=== PATIENT | female | born 1965 | race Caucasian/White ===

== ENCOUNTER 2017-06-30 12:29 | Inpatient (IN) ==
--- NOTE | 2017-06-30 12:54 | History & Physical Report ---
Date of Encounter: 06/30/17 Time of Encounter: 12:54 24 Hour HP Update - Instructions Instructions: If the History and Physical is less than 30 days old and was completed prior to A.M. admission and or procedure and has NOT been updated on calendar day of procedure please complete this update prior to performing procedure. - Update Patient reports changes in Medical Condition: No Changes in examination, assessment, or condition: No Changes in Medication: No Preop tests/diagnostics Reviewed: Yes Surgery Remains Indicated: Yes Consent for Planned Operative Procedure(s) Verified: Yes - Pre-Operative Checklist Preoperative Checklist Indicated: No Prophylactic Antibiotic Ordered: Yes Is VTE Prophylaxis Indicated?: Yes
[2017-06-30] MEDS ORDERED: Famotidine 20 MG/2 ML VIAL IVP ONE (12:58)
[2017-06-30] MEDS ORDERED: Acetaminophen IV 1,000 MG/100 ML INFUS..BTL IVPB ONE (12:59)
--- NOTE | 2017-06-30 13:02 | Anesthesia Evaluation PreOp ---
Date of Encounter: 06/30/17 Time of Encounter: 13:00 - Past History Planned Operation: Revision R-Total Shoulder Cardiac History: HTN (previously medicated. Off>5 yrs s/p Lap Band), Hyperlipidemia (previously medicated. 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 Last seizure > 10yrs ago), Other (Bipolar disorder, Anxiety/Depression/+ Hx Self Harm, Panic disorder, Essential Tremor. Fibromyalgia) Other Medical History: GERD (Sliding Hiatal Hernia, Anxiety/) Anesthesia History: Past Anesthesia (Foot/Ankle surgery, B -shoulder scope, Saira, Tubal ligation, Hsyter, T&A, Lap Band, R-Total shoulder 06/2014, R-ankle fusion 10/2014,), Problems (PONV) Alcohol Use: none Drug use: none Medications and Allergies LORazepam [Lorazepam] 2 mg PO TID PRN 05/07/16 [History] Sertraline [Zoloft] 50 mg PO DAILY 07/27/16 [History] Amitriptyline [Elavil] 25 mg PO HS 06/30/17 [History] Cetirizine HCl [All Day Allergy] 10 mg PO BID PRN 06/30/17 [History] lamoTRIgine [Lamotrigine] 200 mg PO BID 06/30/17 [History] 3 Allergy/AdvReac Type Severity Reaction Status Date / Time gabapentin Allergy See Verified 06/23/17 10:21 Comments hydrocodone Allergy Itching Verified 06/23/17 10:21 Hydromorphone Allergy Hallucinati Verified 06/23/17 10:21 ng primidone Allergy See Verified 06/23/17 10:21 Comments tramadol Allergy Rash Verified 06/23/17 10:21 NSAIDS (Non-Steroidal AdvReac See Verified 06/23/17 10:21 Anti-Inflamma Comments - Meds/Allergy Pre-op Review Medications Reviewed: Yes Allergies Reviewed: Yes Beta Blockers on Current Med List: No Anesthesia Results - Labs Laboratory Tests 06/23/17 06/23/17 06/23/17 10:37 10:37 10:37 WBC 5.3 Hgb 13.6 Hct 41.0 Plt Count 175 PT 11.1 INR 1.0 APTT 28.9 Sodium 142 Potassium 4.3 Chloride 106 Carbon Dioxide 29 BUN 9 Creatinine 0.83 Est GFR (Non-Af Amer) > 60 Anesthesia Exam O2 Sat Height 1.6 m Height 1.6 m Weight 102.512 kg Weight 102.512 kg O2 Sat by Pulse Oximetry 94 Vital Signs Temp Pulse Resp BP Pulse Ox 99.2 F 99 18 108/69 94 06/30/17 12:58 06/30/17 12:58 06/30/17 12:58 06/30/17 12:58 06/30/17 12:58 Height: 5'3" Weight: 226# BMI = 40 NPO (# of Hours): MNOc - HEENT Pupil (Motor): Pupils equal, EOMI Mallampati: III Teeth: Normal Oral Opening: Greater than 3 - LABEL DRIER LOC: Oriented LABEL DRIER Motor: Normal RUE, Normal LUE, Normal RLE, Normal LLE, Normal Face LABEL DRIER Sensory: Normal: RUE, LUE, RLE, LLE, Face - Cardiac Rhythm: Regular Murmur: None - Pulmonary Breath Sounds: bilateral Clear Respiratory Effort: Symmetrical Anesthesia Assess/Plan ASA Score: 3 (MO/BmI = 40, DM, Bipolar/panic disorder/Anxiety/Depression, Seizure disorder, Essential Tremor, Fibromyalgia, ALLYSON) Modified Theodora Scale for Level of Consciousness: Cooperative, oriented, and tranquil Anesthetic Plan: General Monitoring Plan: Standard Monitors Recovery Plan: PACU Anes Supervising Prov Stmt: Pt seen/evaluated, R&B Discussed, questions answered and consent obtained. Addie Pandya
[2017-06-30] MEDS ORDERED: Scopolamine Patch 1.5 MG PATCH.TD72 TD STA (13:10)
[2017-06-30] MEDS ORDERED: Clindamycin 900 MG/50 ML 900 MG/50 ML IV.SOLN IVPB ONE (13:20)
[2017-06-30] MEDS ORDERED: Metoclopramide 10 MG/2 ML VIAL IVP ONE (13:23)
[2017-06-30] MEDS ORDERED: Metoclopramide 10 MG/2 ML VIAL IVP PRN (13:28)
[2017-06-30] MEDS ORDERED: Ringers Solution, Lactated 1,000 ML IVC SCH ×2 (13:30→16:32)
--- NOTE | 2017-06-30 13:41 | Discharge Summary ---
Orders not resulted at time of discharge: Pending orders 06/30/17 08:03 XR shoulder complete RT [XR] Routine Hemoglobin and Hematocrit [HEME] Routine Date of Encounter: 07/04/17 Time of Encounter: 06:49 - Discharge Diagnosis (1) Hypertension Priority: Secondary Status: Chronic Qualifiers: Hypertension type: unspecified Qualified Code(s): I10 - Essential (primary ) hypertension (2) Hyperlipidemia Priority: Secondary Status: Chronic Qualifiers: Hyperlipidemia type: unspecified Qualified Code(s): E78.5 - Hyperlipidemia , unspecified (3) Hyperlipidemia Priority: Secondary Status: Chronic Qualifiers: Hyperlipidemia type: unspecified Qualified Code(s): E78.5 - Hyperlipidemia , unspecified (4) Obstructive sleep apnea Priority: Secondary Status: Chronic (5) Epilepsy Priority: Secondary Status: Chronic Qualifiers: Epilepsy type: unspecified Intractability: not intractable Status epilepticus: without status epilepticus Qualified Code(s): G40.909 - Epilepsy , unspecified, not intractable, without status epilepticus (6) Morbid obesity with BMI of 40.0-44.9, adult Priority: Secondary Status: Chronic (7) Loosening of total shoulder replacement Priority: Primary Status: Chronic Qualifiers: Encounter type: subsequent encounter Qualified Code(s): T84.038D - Mechanical loosening of other internal prosthetic joint, subsequent encounter; Z96.619 - Presence of unspecified artificial shoulder joint (8) Bipolar disease, chronic Priority: Secondary Status: Chronic - Hospital Course Hospital course: Ms. Kurtz is a 51 year old female Status post revision total shoulder replacement The patient had an uneventful postoperative course. They received antibiotics and physical therapy and were discharged in stable condition. There will follow -up in the office in 2 weeks. - Time Spent with Patient Total time spent providing and/or coordinating discharge services: - Discharge Medications Home Medications: LORazepam [Lorazepam] 2 mg PO TID PRN 05/07/16 [History] Sertraline [Zoloft] 50 mg PO DAILY 07/27/16 [History] Amitriptyline [Elavil] 25 mg PO HS 06/30/17 [History] Cetirizine HCl [All Day Allergy] 10 mg PO BID PRN 06/30/17 [History] OxyCODONE Immed Rel [Roxicodone 5 MG] 5 mg PO Q4HR PRN 5 Days #20 tablet [Rx] lamoTRIgine [Lamotrigine] 200 mg PO BID 06/30/17 [History] Allergies/Adverse Reactions: 3 Allergy/AdvReac Type Severity Reaction Status Date / Time gabapentin Allergy FACIAL Verified 06/30/17 13:43 SWELLING hydrocodone Allergy Itching Verified 06/30/17 13:43 Hydromorphone Allergy Hallucinati Verified 06/30/17 13:43 ng primidone Allergy See Verified 06/30/17 13:43 Comments tramadol Allergy Rash Verified 06/30/17 13:43 NSAIDS (Non-Steroidal AdvReac See Verified 06/30/17 13:43 Anti-Inflamma Comments Primary care physician: Graciela Martinez CNP - Patient Status Disposition: Home, Self-Care Condition: Good Functional capacity at discharge: independent ambulation Overall status at discharge: patient is progressing back to baseline - Discharge Instructions Follow Up With: Graciela Martinez CNP [Primary Care Provider] -
[2017-06-30] MEDS ORDERED: Bupivacaine/Clonidine Syringe 1 EACH SYRINGE ONE (13:42)
[2017-06-30] MEDS ORDERED: ROPIVACAINE HCL/PF 0.5% 30 ML VIAL ONE (13:42)
[2017-06-30] MEDS ORDERED: *HR* FentaNYL (PF) 100 MCG/2 ML VIAL ONE ×2 (13:57→15:39)
[2017-06-30] MEDS ORDERED: *HR* Midazolam HCl 2 MG/2 ML VIAL ONE ×2 (13:57→14:13)
[2017-06-30] MEDS ORDERED: Ondansetron 4 MG/2 ML VIAL ONE (13:58)
[2017-06-30] MEDS ORDERED: Dexamethasone 4 MG/ML VIAL ONE (13:58)
[2017-06-30] MEDS ORDERED: *HR* Succinylcholine 200 MG/10 ML VIAL IVP ONE (13:58)
[2017-06-30] MEDS ORDERED: Lidocaine -MPF 2% 2 ML VIAL ONE (13:58)
[2017-06-30] MEDS ORDERED: *HR* Propofol 200 MG/20 ML VIAL IVP ONE (13:59)
[2017-06-30] MEDS ORDERED: Lidocaine -MPF 4% 5 ML AMPUL ONE (13:59)
[2017-06-30] MEDS ORDERED: Ethanol\\Acetic Acid\\Na Ace\\Ben 1,000 ML IRRIG.SOLN IR ONE (14:11)
[2017-06-30] MEDS ORDERED: Tetracaine/PF 20 MG/2 ML AMPUL ONE (14:15)
[2017-06-30] MEDS ORDERED: *HR* FentaNYL PATCH 25 MCG PATCH TD ONE (14:30)
[2017-06-30] MEDS ORDERED: *HR* FentaNYL (PF) 100 MCG/2 ML VIAL IVP PRN (15:01)
[2017-06-30] MEDS ORDERED: *HR* Labetalol 20 MG/4 ML SYRINGE IVP PRN (15:01)
[2017-06-30] MEDS ORDERED: EPHEDrine 50 MG/ML VIAL ONE (15:21)
[2017-06-30] MEDS ORDERED: *HR* PHENYLEPHRINE 1,000 MCG/10 ML SYRINGE IVP ONE (15:25)
--- NOTE | 2017-06-30 15:55 | Orthopedic Operative Note ---
Date of procedure: 06/30/17 Pre-op diagnosis: Rotator cuff tear right total shoulder Post-op diagnosis: same Procedure: Procedure: Right Revision Total Shoulder replacement reverse Estimated blood loss: 100 cc Hardware: Arthrex Revers Base plate: small Glenosphere: 36mm central 2 4.5 screws 1 6.5 screw Humeral stem:6 Poly insert:3 Procedural Notes: Irreparable tear subscapularis Operative procedure: The patient was brought to the operating room and placed on the operating room table. The patient was placed in the modified beachchair position. All pressure points were padded appropriately. And the head was stabilized in the neutral position. The operative extremity was prepped and draped in the sterile surgical fashion. The patient received IV antibiotics prior to skin incision. A standard deltopectoral approach was made to the operative shoulder. Incision was made to the skin and subcutaneous tissue,hemo stasis was obtained with Bovie cautery. Using careful blunt dissection the cephalic vein was identified and mobilized medially. The deltopectoral interval was developed and the clavipectoral fascia was incised. Patient had a irreparable tear of the subscapularis. An extensive debridement was performed, and the shoulder was dislocated. Using an osteotome to clear out the soft tissue, the humeral component was gently removed. Anterior and posterior Bankart retractors were used to expose the glenoid, the glenoid component was removed without incident. The glenoid guide was seated the centering hole was made the glenoid was reamed with the appropriate small reamer. The small glenoid baseplate was seated and secured and locked in place with the 2 4.5 screws, one 6.5 screw. The baseplate was irrigated and dried 36 central glenosphere was seated and secured. Attention was then turned to the humeral side. The humerus was reamed and broached up to its appropriate size 6 in 20 degrees of retroversion. Trial reduction found the shoulder to be relocatable. Trial components were removed, real implants were seated. Trial reduction found the shoulder to be stable with the appropriate 3 Leyla. The trial implants were removed the real implants were seated and secured in the shoulder was reduced. The patient had excellent motion and excellent stability no shuck. The deep tissue was irrigated with pulse irrigation deltopectoral interval was closed with #2 PDS suture. Superficially the subcutaneous tissue was closed with 0 PDS suture, the skin was closed with skin kala. The patient placed sterile dressing, postoperative brace extubated and transferred to the recovery room in stable condition. Anesthesia: GETA Surgeon: Adam Cancino Was there an pharmaceutical assistant present: No Estimated blood loss (cc): 100 Condition: stable Disposition: PACU
[2017-06-30] MEDS ORDERED: Temazepam 15 MG CAPSULE PO PRN (16:32)
[2017-06-30] MEDS ORDERED: *HR* LORazepam 1 MG TABLET PO PRN (16:32)
[2017-06-30] MEDS ORDERED: Ondansetron 4 MG/2 ML VIAL IVP PRN (16:32)
[2017-06-30] MEDS ORDERED: MOM Conc 10 ML UD.LIQ PO PRN (16:32)
[2017-06-30] MEDS ORDERED: Naloxone 0.4 MG/ML INJ IVP PRN (16:32)
[2017-06-30] MEDS ORDERED: Sennosides 8.6 MG TABLET PO PRN (16:32)
--- NOTE | 2017-06-30 16:47 | Anesthesia Evaluation Post Op ---
Date of Encounter: 06/30/17 Time of Encounter: 16:50 - Vital Signs Vital Signs: Vital Signs/O2 Sat/Glucose, Most Current Temp Pulse Resp BP Pulse Ox 06/30/17 16:40 97.6 F 87 14 104/68 98 06/30/17 16:25 98.3 F 85 20 117/75 93 06/30/17 16:15 85 20 109/69 95 06/30/17 16:05 93 20 120/68 93 06/30/17 15:55 97.0 F L 92 20 116/61 100 06/30/17 14:19 88 16 111/69 97 06/30/17 14:11 94 16 119/63 97 06/30/17 13:55 92 16 128/81 96 06/30/17 12:58 99.2 F 99 18 108/69 94 - Lungs Lungs: Clear Ascult./Percussion - Airway Airway: Non-obstructed - Cardiovascular Regular Rate - Mental Status Mental Status: Alert & Oriented, Answers Appropriately - Pain Pain Scale: 0 - Nausea Vomiting Nausea Vomiting: Not Present - Hydration Hydration: Tolerates oral liquids - Discharge PostOp Status: Transfer Patient to floor
[2017-06-30 17:04] LABS: Hematocrit 35.3 % (35.3-44.9); Hemoglobin 11.7 g/dL (11.5-15.4)
[2017-06-30] MEDS ORDERED: *HR* Enoxaparin 30 MG/0.3 ML SYRINGE SQ SCH (18:00)
[2017-06-30] MEDS: *HR* Enoxaparin 30 MG/0.3 ML SYRINGE SQ SCH (18:46)
[2017-06-30] MEDS: Loratadine 10 MG TABLET PO SCH (18:48)
[2017-06-30] MEDS: lamoTRIgine 100 MG TABLET PO SCH (21:18)
[2017-06-30] MEDS: *HR* OxyCODONE/APAP 5/325 TABLET PO PRN (22:39)
[2017-07-01] MEDS: CeFAZolin Pre 2,000 MG/100 ML 2,000 MG/100 ML BAG IVPB SCH ×2 (00:57→09:42)
[2017-07-01 02:58] LABS: Hematocrit 34.1 % (35.3-44.9); Hemoglobin 11.5 g/dL (11.5-15.4)
[2017-07-01] MEDS: *HR* OxyCODONE/APAP 5/325 TABLET PO PRN (04:59)
[2017-07-01] MEDS: *HR* Enoxaparin 30 MG/0.3 ML SYRINGE SQ SCH ×3 (05:00→16:35)
[2017-07-01] MEDS: Loratadine 10 MG TABLET PO SCH (09:42)
[2017-07-01] MEDS: lamoTRIgine 100 MG TABLET PO SCH ×2 (09:44→20:14)
[2017-07-01] MEDS: *HR* OxyCODONE Immed Rel 5 MG TABLET PO PRN ×2 (11:20→19:42)
[2017-07-01] MEDS ORDERED: *HR* OxyCODONE/APAP 10/325 TABLET PO PRN (13:29)
[2017-07-01] MEDS: Acetaminophen IV 1,000 MG/100 ML INFUS..BTL IVPB PRN (14:36)
--- NOTE | 2017-07-01 15:18 | Orthopedics Progress Note ---
Date of Encounter: 07/01/17 Time of Encounter: 15:16 Subjective Principal diagnosis: Status post right total shoulder arthroplasty Interval history: Patient reporting severe pain. She received 10 mg oxycodone, not getting Toradol.. Right shoulder dressings intact Discharge planning pending pain control Objective Vital signs: Vital Signs Temp Pulse Resp BP Pulse Ox 07/01/17 12:04 98 F 83 17 109/68 96 07/01/17 09:58 95 07/01/17 08:36 97.9 F 75 17 102/65 95 07/01/17 04:27 98.5 F 73 14 119/69 95 06/30/17 23:37 98.3 F 105 15 120/63 95 06/30/17 19:57 99.1 F 111 14 112/68 97 06/30/17 18:43 98.3 F 104 14 108/72 98 06/30/17 17:40 96.7 F L 93 16 117/63 96 06/30/17 17:09 98.1 F 89 14 116/74 98 06/30/17 17:05 98 06/30/17 16:40 97.6 F 87 14 104/68 98 06/30/17 16:25 98.3 F 85 20 117/75 93 06/30/17 16:15 85 20 109/69 95 06/30/17 16:05 93 20 120/68 93 06/30/17 15:55 97.0 F L 92 20 116/61 100 Intake and Output 06/30/17 07/01/17 07/01/17 23:59 07:59 15:59 Intake Total 100 / 100 Output Total 100 / 100 350 / 350 Balance -100 / -100 100 / 100 -350 / -350 Intake: IV Fluids 100 / 100 Ancef Premix 2,000 MG/100 ML 2, 100 / 100 000 mg In 100 ml @ 200 mls/hr IVPB Q8HR [facility] Rx#:[id number] Output: Urine 350 / 350 Estimated Blood Loss 100 / 100 Other: # Voids 2 1 - Labs CBC & BMP: 07/01/17 02:27 Labs: Abnormal lab results Hct 34.1 % (35.3-44.9) L 07/01/17 02:27 - VTE Documentation of Mechanical Device: Venous foot pump, device Consult Discharge Plan - Plan Referrals: Graciela Martinez, IT TECHNICAL SUPPORT SPECIALIST [Primary Care Provider] -
[2017-07-01] MEDS: Ketorolac 30 MG/ML VIAL IVP PRN ×2 (15:55→21:59)
[2017-07-01] MEDS ORDERED: *HR* FentaNYL (PF) 100 MCG/2 ML VIAL IVP ONE (16:06)
[2017-07-02] MEDS: *HR* OxyCODONE Immed Rel 5 MG TABLET PO PRN ×3 (01:04→10:13)
[2017-07-02 02:25] LABS: Hematocrit 31.9 % (35.3-44.9); Hemoglobin 10.7 g/dL (11.5-15.4)
[2017-07-02] MEDS: Ketorolac 30 MG/ML VIAL IVP PRN (04:07)
[2017-07-02] MEDS: *HR* Enoxaparin 30 MG/0.3 ML SYRINGE SQ SCH (06:00)
[2017-07-02] MEDS: Loratadine 10 MG TABLET PO SCH (08:51)
[2017-07-02] MEDS: lamoTRIgine 100 MG TABLET PO SCH (08:51)
[2017-07-02 11:52] VITALS: BP 118/77
[2017-07-02] MEDS: Acetaminophen IV 1,000 MG/100 ML INFUS..BTL IVPB PRN (12:33)
== END 2017-07-02 13:09 | disposition home or self-care (01) | DRG 483 ==
LOC: SAMDAY 12:29 → 3NENU 16:27
PROVIDERS: ADMIT Orthopaedic Surgery; ATTEND Orthopaedic Surgery

== ENCOUNTER 2017-08-11 02:19 | Observation (INO) ==
[2017-08-11] MEDS ORDERED: Aspirin 81 MG TAB.CHEW PO ONE (02:41)
[2017-08-11] MEDS ORDERED: Nitroglycerin 0.4 MG TAB.SUBL SL ONE (03:22)
[2017-08-11] MEDS: Nitroglycerin 0.4 MG TAB.SUBL SL PRN ×2 (03:26→05:46)
--- NOTE | 2017-08-11 03:26 | Emergency Department Note ---
Disposition Clinical Impression: Chest pain Qualifiers: Chest pain type: chest pain on breathing Qualified Code(s): R07.1 - Chest pain on breathing Disposition: Admitted As Inpatient Time of Disposition: 08:08 General Adult HPI - General Chief complaint: ED Chest Pain Stated complaint: Chest pain Time Seen by Provider: 08/11/17 02:40 Source: patient, EMS Limitations: no limitations Nursing Notes Reviewed: Yes Vital Signs Reviewed: Yes - History of Present Illness HPI Narrative: Pt complaining of left-sided chest pain that radiates to her scapula. Gets worse when she takes a deep breath. Radiates to her back. Did get some relief with nitroglycerin by EMS. No history of stent placement however did have a cardiac catheter several years ago. Extensive history her family of cardiac issues. Pain Scale: 5 - Related Data Home Medications Medication Instructions Recorded Confirmed LORazepam [Lorazepam] 2 mg PO TID PRN 05/07/16 08/11/17 Sertraline [Zoloft] 50 mg PO DAILY 07/27/16 08/11/17 Amitriptyline [Elavil] 25 mg PO HS 06/30/17 08/11/17 lamoTRIgine [Lamotrigine] 200 mg PO BID 06/30/17 08/11/17 Allergies Allergy/AdvReac Type Severity Reaction Status Date / Time gabapentin Allergy FACIAL Verified 08/11/17 07:29 SWELLING hydrocodone Allergy Itching Verified 08/11/17 07:29 Hydromorphone Allergy Hallucinati Verified 08/11/17 07:29 ng primidone Allergy See Verified 08/11/17 07:29 Comments tramadol Allergy Rash Verified 08/11/17 07:29 NSAIDS (Non-Steroidal AdvReac See Verified 08/11/17 07:29 Anti-Inflamma Comments All systems ED: reviewed and negative except as stated. Constitutional: Denies: fever, chills ENT ED: Denies: congestion Cardiovascular: Reports: chest pain. 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 Denies: abdominal pain, vomiting, diarrhea Genitourinary: Denies: urgency, dysuria, frequency Musculoskeletal: Denies: back pain, neck pain Past Medical History - Past Medical History Attestation: Yes The following information was validated with the patient. 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 Absent: scleral icterus - ENT ENT exam: normal exam, normal oropharynx, mucous membranes moist - Neck Neck exam: Present: normal inspection, full ROM, trachea midline - Chest Chest inspection: Present: normal inspection, symmetric chest wall rise - Respiratory Respiratory exam: Present: normal lung sounds bilaterally. Absent: respiratory distress, accessory muscle use - Cardiovascular Cardiovascular exam: Present: regular rate, normal rhythm, normal heart sounds - Abdominal Exam Abdominal exam: Present: soft, Non-Tender. Absent: distention, organomegaly, Young's sign, Rovsing's sign, tenderness at McBurney's Point - Extremities Exam Extremities exam: Present: normal inspection, full ROM, normal capillary refill. Absent: tenderness, pedal edema - Back Exam Back exam: Present: normal inspection, full ROM. Absent: tenderness - Neurological Exam Neurological exam: Present: alert, oriented X3 - Psychiatric Psychiatric exam: Present: normal affect, normal mood - Skin Skin exam: Present: warm, dry, intact, normal color Course Course Narrative: Female patient presenting to the emergency department complaining of chest pain. States that it started 2 hours prior to arrival here. She was up watching television whenever she started having chest pain. Is in the left side of her chest radiates under her breasts into her back specifically to her scapula. No associated shortness of breath that when she takes a deep breath it does hurt worse. No fevers or chills. No recent illnesses. She states she did have a cardiac catheter is been several years ago. No stent placement. She is not a smoker. She states she is otherwise healthy. Does have an extensive cardiac history in her family. Patient came in by EMS. She states that she does feel better after the nitroglycerin however the pain is returning at this time. We will provide her with another nitroglycerin this time. No signs of acute ischemia on her EKG. We will get a basic lab workup and a chest x-ray. - Reevaluation(s) Reevaluation #1: Patient's troponin is negative. Chest x-ray is normal. EKG shows no signs of acute ischemia. Patient has rebound chest pain after the nitroglycerin wears off. We will place Nitropaste on patient's chest wall. Patient states she did fall several days ago and injured her right shoulder however she states she did not have chest pain at that time. She was denies any trauma to her chest recently. We will admit patient to the hospital for ACS rule out. She does report pleuritic chest pain that is associated with a deep breath however the chest pain that radiates to her back is resolved or at least significantly decreased with nitroglycerin is concerning for ACS. - Consultations Consultation #1: Dr Garcia accepted pt in stable condition. Time: 06:07 Vital Signs Temperature 98.3 F 08/11/17 02:20 Pulse Rate 102 08/11/17 02:20 Respiratory Rate 22 08/11/17 02:20 Blood Pressure 139/78 08/11/17 02:20 O2 Sat by Pulse Oximetry 99 08/11/17 02:20 Temperature 98.3 F 08/11/17 02:20 Pulse Rate 93 08/11/17 07:11 Respiratory Rate 18 08/11/17 07:11 Blood Pressure 132/84 08/11/17 07:11 O2 Sat by Pulse Oximetry 96 08/11/17 07:11 Oxygen Delivery Oxygen Delivery Room Air Medical Decision Making - Medical Records Medical records reviewed: Yes I reviewed the patient's medical records. - Lab Data Lab results reviewed: Yes I reviewed the patient's lab results. Result diagrams: 08/11/17 04:10 08/11/17 04:10 Lab Results 08/11/17 08/11/17 08/11/17 Range/Units 04:10 04:10 04:10 WBC 8.7 (4.3-11.1) K/mcL RBC 4.12 (3.82-4.97) M/mcL Hgb 12.5 (11.5-15.4) g/dL Hct 37.3 (35.3-44.9) % MCV 90.5 (83.0-100.0) fL MCH 30.3 (28.0-33.3) pg MCHC 33.5 (31.6-35.5) g/dL RDW 13.7 (11.5-14.5) % Plt Count 162 (140-400) K/mcL MPV 9.3 L (9.4-12.4) fL Immature Gran % 0.5 (0-4) % Seg Neutrophils % 71.7 % Lymphocytes % 19.2 % Monocytes % 6.7 % Eosinophils % 1.6 % Basophils % 0.3 % Neutrophils # 6.3 (1.6-8.9) K/mcL Lymphocytes # 1.7 (0.6-4.6) K/mcL Monocytes # 0.6 (0.0-1.3) K/mcL Eosinophils # 0.1 (0.0-0.6) K/mcL Basophils # 0.0 (0.0-0.2) K/mcL PT 12.1 (9.4-12.1) Seconds INR 1.1 Sodium 139 (136-145) mEq/L Potassium 4.0 (3.5-5.1) mEq/L Chloride 105 (98-107) mEq/L Carbon Dioxide 27 (23-29) mEq/L BUN 15 (6-20) mg/dL Creatinine 0.85 (0.60-1.20) mg/dL Est GFR ( Amer) > 60 (> 60) Est GFR (Non-Af Amer) > 60 (> 60) BUN/Creatinine Ratio 18 (6-26) Glucose 106 H (70-105) mg/dL Calculated Osmolality 289 (280-300) Calcium 9.3 (8.6-10.3) mg/dL Troponin I < 0.03 (< 0.04) ng/mL - Radiology Data Radiology results reviewed: Yes I reviewed the patient's radiology results. Chest X-Ray 08/11/17 02:41 IMPRESSION: No acute findings. D/ / Chuy Pedro / Chuy Pedro Interpreting Provider: Chuy Pedro - EKG Data EKG #1 EKG attestation: Yes I reviewed and interpreted this EKG. EKG results narrative: Sinus tachycardia at a rate of 102. DC intervals 142. QRS duration is 94. QT is 33. QTC is 377. No signs of acute ischemia. No previous EKG to compare to. There is a lot of baseline artifact. Heart Score - Score History: Slightly Suspicious EKG: Normal Age: 45-65 Risk Factors: 1-2 risk factors Troponin: Less than normal limit HEART Score Total: 2
[2017-08-11 04:24] LABS: Basophils % 0.3 %; Eosinophils # 0.1 K/mcL (0.0-0.6); Eosinophils % 1.6 %; Hematocrit 37.3 % (35.3-44.9); Hemoglobin 12.5 g/dL (11.5-15.4); Immature Granulocytes % 0.5 % (0-4); Lymphocytes # 1.7 K/mcL (0.6-4.6); Lymphocytes % 19.2 %; Mean Corpuscular HGB Conc 33.5 g/dL (31.6-35.5); Mean Corpuscular Hemoglobin 30.3 pg (28.0-33.3); Mean Corpuscular Volume 90.5 fL (83.0-100.0); Mean Platelet Volume 9.3 fL (9.4-12.4); Monocytes # 0.6 K/mcL (0.0-1.3); Monocytes % 6.7 %; Neutrophils # 6.3 K/mcL (1.6-8.9); Platelet Count 162 K/mcL (140-400); Red Blood Count 4.12 M/mcL (3.82-4.97); Red Cell Distribution Width 13.7 % (11.5-14.5); Segmented Neutrophils % 71.7 %
[2017-08-11 04:30] LABS: INR 1.1; Prothrombin Time 12.1 Seconds (9.4-12.1)
[2017-08-11 04:45] LABS: BUN/Creatinine Ratio 18 (6-26); Blood Urea Nitrogen 15 mg/dL (6-20); Calcium 9.3 mg/dL (8.6-10.3); Carbon Dioxide 27 mEq/L (23-29); Chloride 105 mEq/L (98-107); Glucose 106 mg/dL (70-105); Osmolality,Calculated 289 (280-300); Sodium 139 mEq/L (136-145); Troponin I < 0.03 ng/mL (< 0.04); eGFR For African Americans > 60 (> 60); eGFR For Non-African Americans > 60 (> 60)
[2017-08-11] MEDS ORDERED: Nitroglycerin 1 INCH/GM PACKET TP ONE (05:46)
--- NOTE | 2017-08-11 06:16 | Emergency Department Note ---
Disposition Clinical Impression: Chest pain Qualifiers: Chest pain type: chest pain on breathing Qualified Code(s): R07.1 - Chest pain on breathing Disposition: Admitted As Inpatient General Adult HPI - General Chief complaint: ED Chest Pain Stated complaint: Chest pain Time Seen by Provider: 08/11/17 02:40 Source: patient, EMS Limitations: no limitations Nursing Notes Reviewed: Yes Vital Signs Reviewed: Yes - History of Present Illness Pain Scale: 4 - Related Data Home Medications Medication Instructions Recorded Confirmed LORazepam [Lorazepam] 2 mg PO TID PRN 05/07/16 08/11/17 Sertraline [Zoloft] 50 mg PO DAILY 07/27/16 08/11/17 Amitriptyline [Elavil] 25 mg PO HS 06/30/17 08/11/17 lamoTRIgine [Lamotrigine] 200 mg PO BID 06/30/17 08/11/17 Allergies Allergy/AdvReac Type Severity Reaction Status Date / Time gabapentin Allergy FACIAL Verified 08/11/17 07:29 SWELLING hydrocodone Allergy Itching Verified 08/11/17 07:29 Hydromorphone Allergy Hallucinati Verified 08/11/17 07:29 ng primidone Allergy See Verified 08/11/17 07:29 Comments tramadol Allergy Rash Verified 08/11/17 07:29 NSAIDS (Non-Steroidal AdvReac See Verified 08/11/17 07:29 Anti-Inflamma Comments Constitutional: Denies: fever, chills ENT ED: Denies: congestion Cardiovascular: Reports: chest pain. 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 Denies: abdominal pain, vomiting, diarrhea Genitourinary: Denies: urgency, dysuria, frequency Musculoskeletal: Denies: back pain, neck pain Past Medical History - Past Medical History Medical history: Reports: seizures, other Surgical history: Reports: , cholecystectomy, hysterectomy Psychiatric history: Reports: anxiety, depression, prior suicide attempt VP COMMUNICATIONS history: Reports: bilateral tubal ligation - Social History Smoking Status: Never smoker Smokeless Tobacco Status: No Alcohol use: Reports: none Drug use: Reports: none Physical Exam - General Limitations: no limitations General appearance: alert Course Vital Signs Temperature 98.3 F 08/11/17 02:20 Pulse Rate 102 08/11/17 02:20 Respiratory Rate 22 08/11/17 02:20 Blood Pressure 139/78 08/11/17 02:20 O2 Sat by Pulse Oximetry 99 08/11/17 02:20 Temperature 98.3 F 08/11/17 02:20 Pulse Rate 93 08/11/17 07:11 Respiratory Rate 18 08/11/17 07:11 Blood Pressure 132/84 08/11/17 07:11 O2 Sat by Pulse Oximetry 96 08/11/17 07:11 Oxygen Delivery Oxygen Delivery Room Air Medical Decision Making - Lab Data Result diagrams: 08/11/17 04:10 08/11/17 04:10 Lab Results 08/11/17 08/11/17 08/11/17 Range/Units 04:10 04:10 04:10 WBC 8.7 (4.3-11.1) K/mcL RBC 4.12 (3.82-4.97) M/mcL Hgb 12.5 (11.5-15.4) g/dL Hct 37.3 (35.3-44.9) % MCV 90.5 (83.0-100.0) fL MCH 30.3 (28.0-33.3) pg MCHC 33.5 (31.6-35.5) g/dL RDW 13.7 (11.5-14.5) % Plt Count 162 (140-400) K/mcL MPV 9.3 L (9.4-12.4) fL Immature Gran % 0.5 (0-4) % Seg Neutrophils % 71.7 % Lymphocytes % 19.2 % Monocytes % 6.7 % Eosinophils % 1.6 % Basophils % 0.3 % Neutrophils # 6.3 (1.6-8.9) K/mcL Lymphocytes # 1.7 (0.6-4.6) K/mcL Monocytes # 0.6 (0.0-1.3) K/mcL Eosinophils # 0.1 (0.0-0.6) K/mcL Basophils # 0.0 (0.0-0.2) K/mcL PT 12.1 (9.4-12.1) Seconds INR 1.1 Sodium 139 (136-145) mEq/L Potassium 4.0 (3.5-5.1) mEq/L Chloride 105 (98-107) mEq/L Carbon Dioxide 27 (23-29) mEq/L BUN 15 (6-20) mg/dL Creatinine 0.85 (0.60-1.20) mg/dL Est GFR ( Amer) > 60 (> 60) Est GFR (Non-Af Amer) > 60 (> 60) BUN/Creatinine Ratio 18 (6-26) Glucose 106 H (70-105) mg/dL Calculated Osmolality 289 (280-300) Calcium 9.3 (8.6-10.3) mg/dL Troponin I < 0.03 (< 0.04) ng/mL Attestation Statement - Attestation Attestation: I, Rey Castillo MD, personally evaluated this patient and discussed their management with the resident physician. I reviewed the resident's note and agree with the documented findings, medical decision making, and plan of care. 51-year-old female presents to the emergency department with a complaint of some left sided chest pain that started earlier this morning. Pain is below the left breast and radiates around to the left lateral chest. The pain does seem to be worse with deep breathing. No cough or fever. No nausea or vomiting or diaphoresis. No shortness of breath. No palpitations. No dizziness or syncope. No prior history of heart disease. Heart disease does run in her family. On examination patient is a well-developed obese female in no acute distress. She is alert and oriented 3. There is no cyanosis or diaphoresis. Breath sounds are clear and equal bilaterally. Heart regular rate and rhythm. Abdomen is soft and nontender with normal bowel sounds. No pedal edema. Labs reviewed. Troponin normal. Chest x-ray negative. EKG shows a sinus tachycardia with ventricular rate of 102. No acute ST segment elevation or depression noted. The hospitalist, Dr. Garcia, was consulted and accepted admission of the patient.
[2017-08-11] MEDS ORDERED: Naloxone 0.4 MG/ML INJ IVP PRN (06:33)
--- NOTE | 2017-08-11 06:42 | Internal Med History&Physical ---
Date of Encounter: 08/11/17 Time of Encounter: 06:00 Internal Medicine - H&P: HPI Chief complaint: Chest pain Admitted From: Home Plans for Post Hospital Care: Home History of present illness: Ms. Kurtz is a 51 year old female present to ER for chest pain. Past medical history is significant for epilepsy. Patient started to have chest pain about 3 hours ago when she was watching TV. The pain is sudden onset, located on left chest under the breast. Radiated to left scapula. Pain is sharp and constant, 10 out of 10 initially, at 4-5/10 when I saw her in the emergency room. Patient has a mild shortness of breath. Patient denies nausea, vomiting, diaphoresis, or fever. Patient said taking deep breath makes the pain worse. In the emergency room, patient was treated with aspirin and nitroglycerin, patient said the pain is less after treatment. Patient has recent right shoulder surgery 20 days ago. Patient denies recent travel. Patient denies leg pain or leg swelling. Past Med Surg Social Fam HX - Past Medical History Medical history: seizures, other Additional medical history: Tremours Psychiatric history: anxiety, depression, prior suicide attempt - Past Surgical History Surgical History: , cholecystectomy, hysterectomy Additional surgical history: right foot/ankle x3. B/l shoulder. lap band - Social History Smoking Status: Never smoker Smokeless Tobacco Status: No Alcohol use: none Drug use: none - Family History Mother Living Status: Hx Family Cardiac Disorders: Yes Internal Medicine - H&P: Meds LORazepam [Lorazepam] 2 mg PO TID PRN 05/07/16 [History] Sertraline [Zoloft] 50 mg PO DAILY 07/27/16 [History] Amitriptyline [Elavil] 25 mg PO HS 06/30/17 [History] Cetirizine HCl [All Day Allergy] 10 mg PO BID PRN 06/30/17 [History] OxyCODONE Immed Rel [Roxicodone 5 MG] 5 mg PO Q4HR PRN 5 Days #20 tablet [Rx] lamoTRIgine [Lamotrigine] 200 mg PO BID 06/30/17 [History] 3 Allergy/AdvReac Type Severity Reaction Status Date / Time gabapentin Allergy FACIAL Verified 08/10/17 06:10 SWELLING hydrocodone Allergy Itching Verified 08/10/17 06:10 Hydromorphone Allergy Hallucinati Verified 08/10/17 06:10 ng primidone Allergy See Verified 08/10/17 06:10 Comments tramadol Allergy Rash Verified 08/10/17 06:10 NSAIDS (Non-Steroidal AdvReac See Verified 08/10/17 06:10 Anti-Inflamma Comments All Systems PM: A 10-system review of systems was performed and is negative for pertinent findings except as documented above in the HPI. - Constitutional Vitals: Temp Pulse Resp BP Pulse Ox 98.3 F 95 18 129/94 97 08/11/17 02:20 08/11/17 05:45 08/11/17 05:45 08/11/17 05:45 08/11/17 05:45 General appearance: Present: A&O X 3, no acute distress, answers questions appropriately - Head Head exam: Present: atraumatic, normocephalic - Eye Eye exam: Present: PERRL, conjuntiva pink, sclera anicteric Pupils: Present: PERRL - Neck Neck exam general surgery: Present: supple, trachea midline. Absent: lymphadenopathy - Respiratory Respiratory exam: Present: CTAB. Absent: accessory muscle use, rales, rhonchi, wheezes - Cardiovascular Cardiovascular exam: Present: RRR, +S1, +S2. Absent: diastolic murmur, gallop, rubs, systolic murmur - GI/Abdominal GI/Abdominal exam: Present: normal bowel sounds, soft, no peritoneal signs. Absent: distended, tenderness - Extremities Exam Extremities exam: Present: warm, radial pulses palpable and symmetrical. Absent : calf tenderness, cyanotic, pedal edema - Neurological Exam Neurological exam: Present: CN II-XII intact, oriented X3, no focal deficits. Absent: pronater drift, facial droop, speech deficit - Skin Skin exam: Present: dry, intact Internal Med - H&P Results - Labs CBC & Chem 7: 08/11/17 04:10 08/11/17 04:10 - EKG Data -: EKG Interpreted by Myself EKG shows normal: sinus rhythm Rate: normal - Assessment and plan (1) Chest pain Current Visit: Yes Status: Acute Assessment and plan: Patient has chest pain, which is sudden onset. EKG and chest x-ray unremarkable. Pain is respond to nitroglycerin. Need to rule out ACS. Patient also has recent surgery (minor surgery), and the pain is a pleural like pain, also need to rule out PE. - Place patient on continuous cardiac monitoring - Track 3 sets of troponin - Check d-dimer, if positive will consider CTA if patient still have chest pain. Qualifiers: Chest pain type: chest pain on breathing Qualified Code(s): R07.1 - Chest pain on breathing; R07.81 - Pleurodynia (2) DVT prophylaxis Current Visit: Yes Status: Acute Assessment and plan: Heparin subcutaneously (3) Epilepsy Current Visit: No Status: Chronic Assessment and plan: Continue home medication lamotrigine 200 mg twice a day. Qualifiers: Epilepsy type: unspecified Intractability: not intractable Status epilepticus: without status epilepticus Qualified Code(s): G40.909 - Epilepsy , unspecified, not intractable, without status epilepticus - Time Spent With Patient Total time spent is greater than 50% in coordination of care (as documented) at patient's floor/unit and/or counseling patient:
[2017-08-11] MEDS ORDERED: lamoTRIgine 100 MG TABLET PO SCH (09:00)
[2017-08-11] MEDS: Acetaminophen 325 MG TABLET PO PRN ×2 (09:38→15:12)
[2017-08-11 11:25] VITALS: BP 120/76
--- NOTE | 2017-08-11 14:49 | Discharge Summary ---
Orders not resulted at time of discharge: Pending orders 08/12/17 04:00 Basic Metabolic Panel AM 0400 Complete Blood Count [HEME] AM 0400 Magnesium AM 0400 Date of Encounter: 08/11/17 Time of Encounter: 11:00 - Discharge Diagnosis (1) Chest pain Priority: Primary Status: Acute Assessment and Plan: Patient has chest pain, which is sudden onset. EKG and chest x-ray unremarkable. Troponin negative x3. Chest pain had improved but persistent. Recent shoulder surgery, however did not limit mobility. No other risk factors. Low wells score 1.5. D dimer <500. Low risk for PE. Patient not SOB, no hypoxia , HR has been normal except for the first reading. Will discharge to follow up with PMD. Recommended Tylenol for possible costochondritis. Cannot take NSAIDs due to previous GI surgery. Counseled on coming back to ED if pain worsens and does not improve. States that she feels well to go home now. Qualifiers: Chest pain type: chest pain on breathing Qualified Code(s): R07.1 - Chest pain on breathing; R07.81 - Pleurodynia (2) Epilepsy Priority: Secondary Status: Chronic Assessment and Plan: Continue home medication lamotrigine 200 mg twice a day. Qualifiers: Epilepsy type: unspecified Intractability: not intractable Status epilepticus: without status epilepticus Qualified Code(s): G40.909 - Epilepsy , unspecified, not intractable, without status epilepticus Hospital course: Ms. Kurtz is a 51 year old female with PMH of Epilepsy presented to the ER complained of pleuritic chest pain under the breast worst with deep inspiration. Had recent shoulder surgery but reported no mobility changes and no other risk factors increasing risk for clot. D dimer was negative with no significant EKG findings, troponins are all negative. Currently feels better and well enough to go home. Discharge for follow up with PMD, take tylenol as needed. Instructed to return to ED with pain persistent or gets worse. Discharge discussed with: patient, nurse, social work, case management - Time Spent with Patient Total time spent providing and/or coordinating discharge services: Greater than 30 minutes - Discharge Medications Home Medications: LORazepam [Lorazepam] 2 mg PO TID PRN 05/07/16 [History] Sertraline [Zoloft] 50 mg PO DAILY 07/27/16 [History] Amitriptyline [Elavil] 25 mg PO HS 06/30/17 [History] lamoTRIgine [Lamotrigine] 200 mg PO BID 06/30/17 [History] Allergies/Adverse Reactions: 3 Allergy/AdvReac Type Severity Reaction Status Date / Time gabapentin Allergy FACIAL Verified 08/11/17 07:29 SWELLING hydrocodone Allergy Itching Verified 08/11/17 07:29 Hydromorphone Allergy Hallucinati Verified 08/11/17 07:29 ng primidone Allergy See Verified 08/11/17 07:29 Comments tramadol Allergy Rash Verified 08/11/17 07:29 NSAIDS (Non-Steroidal AdvReac See Verified 08/11/17 07:29 Anti-Inflamma Comments Date of admission: 08/11/17 06:17 Primary care physician: Graciela Martinez CNP - Constitutional Vitals: Temp Pulse Resp BP Pulse Ox 98.7 F 82 18 120/76 98 08/11/17 11:24 08/11/17 11:24 08/11/17 11:24 08/11/17 11:24 08/11/17 11:24 General appearance: Present: A&O X 3, no acute distress, answers questions appropriately Exam: General: Alert and oriented Skin: Normal color, no rash, no lesions. HEENT: EOMI, pupils equal, round and reactive. Cardiovascular: Regular rate, regular rythm. No murmurs appreciated. Lungs:Normal breath sounds, no wheezes or crackles. Abdomen:Soft, non-tender, no rigidity. Extremities:No deformity, no edema or tenderness, no joint swelling or clubbing. Neurological:Normal cognition, no weakness, no numbness. Rest of the physical exam is non contributory - Patient Status Disposition: Home, Self-Care Condition: Good Overall status at discharge: patient is progressing back to baseline - Discharge Instructions Follow Up With: Graciela Martinez CNP [Primary Care Provider] - - Diet and Activity Activity: resume usual activities as tolerated
--- NOTE | 2017-08-11 17:43 | Electrocardiograph Report ---
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
[2017-08-11] MEDS ORDERED: *HR* Heparin 5,000 UNIT/ML VIAL SQ SCH (18:00)
== END 2017-08-11 17:42 | disposition home or self-care (01) ==
LOC: 2ANU 02:19 → EMEROO 02:19 → SUATTDRO 06:17 → 2ANU 07:42
PROVIDERS: ADMIT Internal Medicine; ATTEND Student in an Organized Health Care Education/Training Program

== ENCOUNTER 2019-01-10 10:12 | Observation (INO) ==
[2019-01-10] MEDS ORDERED: Nitroglycerin 0.4 MG TAB.SUBL SL PRN (10:17)
[2019-01-10] MEDS ORDERED: Aspirin 81 MG TAB.CHEW PO ONE (10:17)
[2019-01-10 10:39] LABS: Basophils % 0.5 %; Eosinophils # 0.1 K/mcL (0.0-0.6); Eosinophils % 2.2 %; Hemoglobin 13.8 g/dL (11.5-15.4); Immature Granulocytes % 0.5 % (0-4); Lymphocytes # 1.4 K/mcL (0.6-4.6); Lymphocytes % 22.7 %; Mean Corpuscular HGB Conc 34.5 g/dL (31.6-35.5); Mean Corpuscular Hemoglobin 30.7 pg (28.0-33.3); Mean Corpuscular Volume 89.1 fL (83.0-100.0); Mean Platelet Volume 9.5 fL (9.4-12.4); Monocytes # 0.4 K/mcL (0.0-1.3); Monocytes % 5.8 %; Neutrophils # 4.3 K/mcL (1.6-8.9); Platelet Count 165 K/mcL (140-400); Red Blood Count 4.49 M/mcL (3.82-4.97); Red Cell Distribution Width 13.7 % (11.5-14.5); Segmented Neutrophils % 68.3 %; White Blood Count 6.4 K/mcL (4.3-11.1)
[2019-01-10 10:56] LABS: INR 0.9; Prothrombin Time 10.7 Seconds (9.4-12.1)
[2019-01-10 10:59] LABS: Activated Partial Thrombo Time 30.4 Seconds (26.0-36.0)
[2019-01-10 11:16] LABS: BUN/Creatinine Ratio 12 (6-26); Blood Urea Nitrogen 11 mg/dL (6-20); Calcium 9.3 mg/dL (8.6-10.3); Carbon Dioxide 28 mEq/L (23-29); Chloride 102 mEq/L (98-107); Glucose 91 mg/dL (70-105); Osmolality,Calculated 287 (280-300); Potassium 4.2 mEq/L (3.5-5.1); Sodium 139 mEq/L (136-145); Troponin I < 0.03 ng/mL (< 0.04); eGFR For African Americans > 60 (> 60); eGFR For Non-African Americans > 60 (> 60)
[2019-01-10] MEDS ORDERED: Naloxone 0.4 MG/ML INJ IVP PRN (12:52)
[2019-01-10] MEDS ORDERED: GI Cocktail 40 ML EACH PO ONE (13:15)
[2019-01-10] MEDS ORDERED: LORAZEPAM 1 MG PO PRN (13:22)
[2019-01-10] MEDS ORDERED: *HR* LORazepam 1 MG TABLET PO PRN (13:25)
[2019-01-10] MEDS: lamoTRIgine 100 MG TABLET PO SCH ×2 (16:18→21:58)
[2019-01-10] MEDS: hydroCHLOROthiazide 25 MG TABLET PO SCH (16:19)
[2019-01-10] MEDS: *HR* Heparin 5,000 UNIT/ML VIAL SQ SCH (18:21)
[2019-01-10] MEDS ORDERED: *HR* Promethazine 25 MG/ML VIAL IVP PRN (20:45)
[2019-01-10] MEDS ORDERED: Acetaminophen IV 1,000 MG/100 ML INFUS..BTL IVPB ONE (23:15)
[2019-01-11 02:14] LABS: Hematocrit 37.3 % (35.3-44.9); Hemoglobin 12.4 g/dL (11.5-15.4); Mean Corpuscular HGB Conc 33.2 g/dL (31.6-35.5); Mean Corpuscular Volume 93.3 fL (83.0-100.0); Mean Platelet Volume 9.8 fL (9.4-12.4); Platelet Count 157 K/mcL (140-400); Red Cell Distribution Width 13.9 % (11.5-14.5); White Blood Count 6.1 K/mcL (4.3-11.1)
[2019-01-11 02:38] LABS: BUN/Creatinine Ratio 18 (6-26); Blood Urea Nitrogen 17 mg/dL (6-20); Calcium 8.9 mg/dL (8.6-10.3); Carbon Dioxide 25 mEq/L (23-29); Chloride 105 mEq/L (98-107); Glucose 90 mg/dL (70-105); Osmolality,Calculated 289 (280-300); Sodium 139 mEq/L (136-145); eGFR For African Americans > 60 (> 60); eGFR For Non-African Americans > 60 (> 60)
[2019-01-11] MEDS: *HR* Heparin 5,000 UNIT/ML VIAL SQ SCH ×2 (05:13→18:18)
[2019-01-11] MEDS ORDERED: Regadenoson 0.4 MG/5 ML SYRINGE IVP ONE (09:49)
[2019-01-11] MEDS: hydroCHLOROthiazide 25 MG TABLET PO SCH (13:00)
[2019-01-11] MEDS: lamoTRIgine 100 MG TABLET PO SCH ×2 (13:00→20:56)
[2019-01-11] MEDS ORDERED: Ondansetron 4 MG/2 ML VIAL IVP ONE (18:55)
[2019-01-12] MEDS: *HR* Heparin 5,000 UNIT/ML VIAL SQ SCH (05:09)
[2019-01-12 05:40] LABS: Hematocrit 42.3 % (35.3-44.9); Hemoglobin 13.9 g/dL (11.5-15.4); Mean Corpuscular HGB Conc 32.9 g/dL (31.6-35.5); Mean Corpuscular Hemoglobin 30.9 pg (28.0-33.3); Mean Platelet Volume 9.8 fL (9.4-12.4); Platelet Count 166 K/mcL (140-400); Red Cell Distribution Width 13.9 % (11.5-14.5); White Blood Count 6.2 K/mcL (4.3-11.1)
[2019-01-12 05:57] LABS: BUN/Creatinine Ratio 14 (6-26); Blood Urea Nitrogen 14 mg/dL (6-20); Calcium 9.3 mg/dL (8.6-10.3); Carbon Dioxide 30 mEq/L (23-29); Chloride 99 mEq/L (98-107); Glucose 100 mg/dL (70-105); Osmolality,Calculated 295 (280-300); Potassium 3.6 mEq/L (3.5-5.1); Sodium 142 mEq/L (136-145); eGFR For African Americans > 60 (> 60); eGFR For Non-African Americans 56 (> 60)
[2019-01-12] MEDS: lamoTRIgine 100 MG TABLET PO SCH (09:28)
[2019-01-12] MEDS: hydroCHLOROthiazide 25 MG TABLET PO SCH (09:28)
[2019-01-12 15:58] VITALS: BP 116/78
== END 2019-01-12 16:43 | disposition home or self-care (01) ==
LOC: EMEROOARM 10:12 → 3BNU 10:12
PROVIDERS: ADMIT Internal Medicine; ATTEND Internal Medicine